=== PATIENT | male | born 1990 | race Hispanic/Latino ===

== ENCOUNTER 2017-12-08 12:12 | Emergency (ER) | payer SELFPAY ==
[2017-12-08] MEDS ORDERED: PREDNISONE 20 MG TABLET ONE (12:54)
[2017-12-08] MEDS ORDERED: IPRATROPIUM/ALBUTEROL SULFATE 3 ML SOLUTION IH ONE ×2 (13:00→13:16)
== END 2017-12-08 13:57 | disposition home or self-care (01) ==
LOC: EDH 12:12
DX: J18.9 Pneumonia, unspecified organism (principal); J45.909 Unspecified asthma, uncomplicated; Z72.0 Tobacco use
CPT/HCPCS: 71046; 94640

== ENCOUNTER 2018-10-23 13:31 | Emergency (ER) | payer OTHER | END 2018-10-23 14:37 | disposition home or self-care (01) | LOC: EDH 13:31 | DX: J03.90 Acute tonsillitis, unspecified (principal); J45.909 Unspecified asthma, uncomplicated; Z72.0 Tobacco use ==

== ENCOUNTER 2019-01-03 13:27 | Emergency (ER) | payer OTHER | END 2019-01-03 14:22 | disposition home or self-care (01) | LOC: EDH 13:27 | DX: S61.412D Laceration without foreign body of left hand, subsequent encounter (principal); J45.909 Unspecified asthma, uncomplicated; X58.XXXD Exposure to other specified factors, subsequent encounter | CPT/HCPCS: 99281 ==

== ENCOUNTER 2019-01-06 23:20 | Emergency (ER) | payer OTHER | END 2019-01-07 00:10 | disposition home or self-care (01) | LOC: EDH 23:20 | DX: S61.412D Laceration without foreign body of left hand, subsequent encounter (principal); J45.909 Unspecified asthma, uncomplicated; X58.XXXD Exposure to other specified factors, subsequent encounter | CPT/HCPCS: 99281 ==

== ENCOUNTER 2021-02-11 09:33 | Emergency (ER) | payer SELFPAY ==
[~2021-02-11] VITALS: Ht 167.6 cm; Wt 79.4 kg
[2021-02-11 09:34] VITALS: BP 161/81
[2021-02-11] MEDS ORDERED: PHEN177S35 MM (11:23)
== END 2021-02-11 11:58 | disposition home or self-care (01) ==
LOC: EDH 09:33
DX: J02.9 Acute pharyngitis, unspecified (principal); J45.909 Unspecified asthma, uncomplicated
CPT/HCPCS: 87804; 87880

== ENCOUNTER 2021-04-15 08:17 | Emergency (ER) | payer SELFPAY ==
[~2021-04-15] VITALS: Ht 170.2 cm; Wt 74.8 kg
[~2021-04-15 08:17] MED LIST: PHEN177S35 MM
[2021-04-15 08:25] VITALS: BP 160/80
[2021-04-15] MEDS ORDERED: IBUP-2697 PO (08:47)
[2021-04-15] MEDS ORDERED: SOLU-MEDROL 40MG VIAL ONE (09:19)
[2021-04-15] MEDS ORDERED: SOLU-MEDROL 40MG VIAL IJ SCH (09:30)
== END 2021-04-15 10:11 | disposition home or self-care (01) ==
LOC: EDH 08:17
DX: M94.0 Chondrocostal junction syndrome [Tietze] (principal); Z79.1 Long term (current) use of non-steroidal anti-inflammatories (NSAID)
CPT/HCPCS: 71045; 96372; 99283; J2920